=== PATIENT | female | born 1940 | race African-American/Black ===

== ENCOUNTER → 2021-02-14 | Outpatient (CLI) | payer MEDICARE ==
[2021-02-14 14:35] LABS: BASO # 0.2 x10^3/uL (0.0-0.2); BASO % 2 % (0-3); EOS # 0.5 x10^3/uL (0.0-0.7); EOS % 4 % (0-3); HEMATOCRIT 40.8 % (36.0-47.0); HEMOGLOBIN 13.4 g/dL (12.0-15.5); LYMPH # 1.9 x10^3/uL (1.0-4.8); LYMPH % 16 % (24-48); MEAN CORPUSCULAR HEMOGLOBIN 30 pg (25-35); MEAN CORPUSCULAR HGB CONC 33 g/dL (31-37); MEAN CORPUSCULAR VOLUME 90 fL (79-100); MONO # 1.1 x10^3/uL (0.0-1.1); MONO % 9 % (0-9); NEUT # 8.1 x10^3/uL (1.8-7.7); NEUT % 69 % (31-73); PLATELET COUNT 272 x10^3/uL (140-400); RED BLOOD COUNT 4.51 x10^6/uL (3.50-5.40); RED CELL DISTRIBUTION WIDTH 14.3 % (11.5-14.5); WHITE BLOOD COUNT 11.8 x10^3/uL (4.0-11.0)
[2021-02-15 16:09] LABS: KAPPA FREE 78.7 mg/L (3.3-19.4); KAPPA LAMBDA RATIO 2.96 (0.26-1.65); LAMBDA FREE 26.6 mg/L (5.7-26.3)
[2021-02-17 14:11] LABS: COMMENT IMMUNOFIX SERUM Note: (.); IMMUNOGLOBULIN A 326 mg/dL (64-422); IMMUNOGLOBULIN G 2339 mg/dL (586-1602); IMMUNOGLOBULIN M 80 mg/dL (26-217)
[2021-02-17 15:12] LABS: ALBUM 3.6 g/dL (2.9-4.4); ALPHA 1 0.2 g/dL (0.0-0.4); BETA 1.3 g/dL (0.7-1.3); GAMMA 2.1 g/dL (0.4-1.8); PROTEIN TOTAL 8.2 g/dL (6.0-8.5); SPEP AG RATIO 0.8 (0.7-1.7)
[2021-02-17 18:12] LABS: ANA INTERP Negative (.)
== END ==
LOC: ONCLAB 14:07
PROVIDERS: ATTEND Internal Medicine Hematology & Oncology
DX: D72.829 Elevated white blood cell count, unspecified (principal)
CPT/HCPCS: 36415; 81270; 82607; 82746; 82784; 83520; 84165; 85025; 86038; 86140; 86334; 88374